=== PATIENT | male | born 1965 | race Caucasian/White ===

== ENCOUNTER 2016-12-24 09:35 | Emergency (ER) | payer MEDICARE ==
[2016-12-24] MEDS ORDERED: Sodium Chloride 0.9% 1000 ML 1,000 ML IV STA (09:55)
[2016-12-24] MEDS ORDERED: THIAMINE 200 MG/2 ML IV ONE (09:55)
[2016-12-24] MEDS ORDERED: Zofran 4 MG/2 ML VIAL IV ONE (09:55)
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
[2016-12-24] MEDS ORDERED: Sodium Chloride 0.9% 1000 ML 1,000 ML ONE (10:04)
[2016-12-24] MEDS ORDERED: THIAMINE 200 MG/2 ML ONE (10:04)
[2016-12-24] MEDS ORDERED: Zofran 4 MG/2 ML VIAL ONE (10:04)
--- NOTE | 2016-12-24 10:25 | XRAY ---
Indication: Fever, chills, and diarrhea. Comparison: July 06, 2014. Portable chest again demonstrates normal heart and lungs with left base calcified granuloma. Bony thorax intact again with old right seventh rib fracture. New spinal stimulator leads terminate mid thoracic level. Impression: Nonacute chest.
[2016-12-24 10:31] VITALS: O2SAT 99
[2016-12-24 10:39] LABS: BASOPHIL % 0.2 % (0.0-0.4); Eosinophil % 0.9 % (0.00-5.0); Granulocytes % 73.9 % (36.0-66.0); Lymphocytes % 19.4 % (24.0-44.0); Mean Cell Volume 91.9 fl (78-100); Mean Corpuscular Hemoglobin 30.6 pg (26-32); Mean Platelet Volume 10.9 fl (6-9.5); Monocytes % 5.6 % (0.0-12.0); Platelet Count 193 K/mm3 (150-450); Red Blood Count 3.46 M/mm3 (4.1-5.6); Red Cell Distribution Width 13.5 % (11.5-14.0); White Blood Count 4.6 K/mm3 (4.0-10.5)
[2016-12-24 11:04] LABS: ALBUMIN 3.9 g/dL (3.4-5.0); ALKALINE PHOSPHATASE 80 U/L (46-116); ANION GAP 15.4 MEQ/L (5-15); BILIRUBIN,TOTAL 0.3 mg/dL (0.2-1.0); BLOOD UREA NITROGEN 11 mg/dL (9-20); CHLORIDE 96 mEq/L (98-107); Carbon Dioxide 24.6 mEq/L (21-32); Glucose 106 MG/DL (70-110); LIPASE 225 U/L (73-393); Potassium 4.1 mEq/L (3.5-5.1); SGOT/AST 75 U/L (15-37); SGPT/ALT 54 U/L (12-78); SODIUM 132 mEq/L (136-145); Total Protein 7.8 gm/dL (6.4-8.2)
[2016-12-24 11:06] LABS: ACETAMINOPHEN 6.4 ug/ml (10-30); TROPONIN < 0.017 ng/ml (0.000-0.056)
[2016-12-24] MEDS ORDERED: NORCO 5/325 MG PO ONE (11:32)
[2016-12-24] MEDS ORDERED: NORCO 5/325 MG ONE (11:35)
[2016-12-24 11:39] VITALS: BP 176/96; PULSE 87
[2016-12-24 12:01] LABS: COMPLETE URINE MICROSCOPIC? NO; Collection Type VOID
== END 2016-12-24 12:17 | disposition home or self-care (01) ==
LOC: ED 09:35
DX: B34.9 Viral infection, unspecified (principal); R11.2 Nausea with vomiting, unspecified; R51 Headache; R50.9 Fever, unspecified; R19.7 Diarrhea, unspecified; R05 Cough
CPT/HCPCS: 96374; 99284; 36000; 96360; 96375; 82150; 81002; 36415; 83690; 80307; 80320; 83986; 85025; 80053; 84484; 71010; G0481; J2405; A9270-GY

== ENCOUNTER 2016-12-29 22:14 | Emergency (ER) | payer MEDICARE ==
[2016-12-29] MEDS ORDERED: Sodium Chloride 0.9% 1000 ML 1,000 ML IV STA (23:33)
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
[2016-12-29] MEDS ORDERED: Sodium Chloride 0.9% 1000 ML 1,000 ML ONE (23:48)
[2016-12-29 23:49] LABS: BASOPHIL % 0.3 % (0.0-0.4); Eosinophil % 1.4 % (0.00-5.0); Granulocytes % 56.6 % (36.0-66.0); Lymphocytes % 33.6 % (24.0-44.0); Mean Cell Volume 94.5 fl (78-100); Mean Corpuscular Hemoglobin 31.2 pg (26-32); Mean Platelet Volume 9.6 fl (6-9.5); Monocytes % 8.1 % (0.0-12.0); Platelet Count 220 K/mm3 (150-450); Red Cell Distribution Width 13.5 % (11.5-14.0); White Blood Count 6.9 K/mm3 (4.0-10.5)
[2016-12-30 00:10] LABS: ALBUMIN 3.3 g/dL (3.4-5.0); ALKALINE PHOSPHATASE 74 U/L (46-116); ANION GAP 13.4 MEQ/L (5-15); BILIRUBIN,TOTAL 0.1 mg/dL (0.2-1.0); BLOOD UREA NITROGEN 19 mg/dL (9-20); CHLORIDE 105 mEq/L (98-107); Glucose 98 MG/DL (70-110); Potassium 4.4 mEq/L (3.5-5.1); SGOT/AST 25 U/L (15-37); SGPT/ALT 24 U/L (12-78); SODIUM 140 mEq/L (136-145)
[2016-12-30] MEDS ORDERED: Vistaril 50 MG/ML IM ONE ×2 (00:49→01:02)
[2016-12-30 01:01] LABS: Bacteria RARE /HPF (NEGATIVE); COMPLETE URINE MICROSCOPIC? YES; Collection Type CLEAN CATCH
[2016-12-30 01:35] VITALS: BP 152/92; PULSE 68; O2SAT 100
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
== END 2016-12-30 01:39 | disposition home or self-care (01) ==
LOC: ED 22:14
DX: R11.0 Nausea (principal); M54.2 Cervicalgia; G89.29 Other chronic pain; R53.81 Other malaise; I10 Essential (primary) hypertension
CPT/HCPCS: 36415; 72040; 80053; 81000; 85025; 96360; 96361; 96372; 99284; 99285; J3410

== ENCOUNTER 2017-11-12 14:42 | Emergency (ER) | payer MEDICARE ==
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
[2017-11-12] MEDS ORDERED: Adacel Vial IM ONE ×2 (15:19→16:00)
[2017-11-12] MEDS ORDERED: TORAdol 30 mg Injection IV ONE (15:20)
[2017-11-12] MEDS ORDERED: MORPHINE SULFATE 10 MG/ML IV ONE (15:20)
[2017-11-12] MEDS ORDERED: Sodium Chloride 0.9% 1000 ML 1,000 ML IV STA (15:20)
[2017-11-12] MEDS ORDERED: Zofran 4 MG/2 ML VIAL IV ONE (15:20)
[2017-11-12] MEDS ORDERED: Zosyn 3.375GM/100 Ml D5W 3.375 GM/100 ML IVPB IV STA (15:21)
[2017-11-12 15:44] LABS: BASOPHIL % 0.2 % (0.0-0.4); Basophil (Absolute #) 0.01 (0-0.4); Eosinophil % 3.6 % (0.00-5.0); Eosinophil (Absolute #) 0.21 (0-0.5); Granulocyte Absolute (ANC) 3.82 (1.4-6.9); Granulocytes % 66.3 % (36.0-66.0); Hematocrit 32.8 % (42-50); Hemoglobin 10.4 gm/dl (12.5-18.0); Lymphocyte (Absolute #) 1.41 (1.0-4.6); Lymphocytes % 24.4 % (24.0-44.0); Mean Cell Volume 96.5 fl (78-100); Mean Corpuscular Hgb Concent. 31.7 g/dl (32-36); Monocyte (Absolute #) 0.32 (0.0-1.3); Monocytes % 5.5 % (0.0-12.0); Platelet Count 229 K/mm3 (150-450); Red Cell Distribution Width 14.1 % (11.5-14.0); White Blood Count 5.8 K/mm3 (4.0-10.5)
[2017-11-12 15:54] LABS: Mean Corpuscular Hemoglobin 30.5 pg (26-32)
[2017-11-12 15:55] LABS: Appearance CLEAR (CLEAR)
[2017-11-12 15:56] LABS: Bacteria FEW /HPF (NEGATIVE); Bilirubin NEGATIVE (NEGATIVE); Blood NEGATIVE Ery/ul (0-5); Epithelial Cells FEW /HPF (FEW); Glucose NEGATIVE (NEGATIVE); Ketones NEGATIVE (NEGATIVE); Leukocyte Esterase NEGATIVE (NEGATIVE); Nitrite NEGATIVE (NEGATIVE); Protein,Urine Dip TRACE (Negative); Urobilinogen NORMAL mg/dL (0-1)
[2017-11-12] MEDS ORDERED: TORAdol 30 mg Injection ONE (15:56)
[2017-11-12] MEDS ORDERED: Zofran 4 MG/2 ML VIAL ONE (15:56)
[2017-11-12] MEDS ORDERED: Zosyn 3.375GM/100 Ml D5W 3.375 GM/100 ML IVPB IV ONE (15:57)
[2017-11-12] MEDS ORDERED: Sodium Chloride 0.9% 1000 ML 1,000 ML ONE (15:57)
[2017-11-12] MEDS ORDERED: MORPHINE SULFATE 10 MG/ML ONE (15:57)
[2017-11-12 16:03] LABS: Amphetamine,Urine POS. (NEGATIVE); Barbiturate,Urine NEG. (NEGATIVE); Benzodiazepine,Urine NEG. (NEGATIVE); Cocaine,Urine NEG. (NEGATIVE); Methadone,Urine NEG. (NEGATIVE); Opiate,Urine NEG. (NEGATIVE); PCP,Urine NEG. (NEGATIVE); THC,Urine POS. (NEGATIVE)
[2017-11-12 16:04] LABS: ANION GAP 16.5 MEQ/L (5-15); BLOOD UREA NITROGEN 10 mg/dL (9-20); CHLORIDE 106 mEq/L (98-107); Calcium 9.2 mg/dL (8.5-10.1); Carbon Dioxide 24.9 mEq/L (21-32); Creatinine 1 1.03 mg/dl (0.55-1.30); Glucose 100 MG/DL (70-110); SODIUM 143 mEq/L (136-145)
[2017-11-12 16:34] VITALS: PULSE 80
[2017-11-12 17:03] VITALS: BP 199/122; O2SAT 98
== END 2017-11-12 17:43 | disposition short-term general hospital (02) ==
LOC: ED 14:42
DX: S51.811A Laceration without foreign body of right forearm, initial encounter (principal); W54.0XXA Bitten by dog, initial encounter
CPT/HCPCS: 36000; 36415; 80048; 80307; 81000; 85025; 90471; 90715; 96360; 96365; 96374; 96375; 99285; J1885; J2270; J2405; J2543

== ENCOUNTER 2017-11-14 04:18 | Emergency (ER) | payer MEDICARE ==
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
[2017-11-14 04:48] VITALS: PULSE 98
[2017-11-14] MEDS ORDERED: TORAdol 30 mg Injection IM ONE (04:52)
[2017-11-14] MEDS ORDERED: TORAdol 30 mg Injection ONE (04:56)
[2017-11-14 05:07] VITALS: BP 147/83; O2SAT 100
== END 2017-11-14 05:16 | disposition home or self-care (01) ==
LOC: ED 04:18
PROC: 2W3CX1Z Immobilization of Right Lower Arm using Splint (ICD-10-PCS; principal; 2017-11-14)
DX: W54.0XXS Bitten by dog, sequela (principal)
CPT/HCPCS: 29126; 96372; 99284; J1885

== ENCOUNTER 2018-05-12 12:59 | Emergency (ER) | payer OTHER, MEDICARE ==
[2018-05-12] MEDS ORDERED: Sodium Chloride 0.9% 1000 ML 1,000 ML IV STA ×2 (13:40→14:41)
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
[2018-05-12] MEDS ORDERED: Sodium Chloride 0.9% 1000 ML 1,000 ML ONE ×2 (13:49→14:29)
[2018-05-12 14:02] LABS: BASOPHIL % 0.2 % (0.0-0.4); Basophil (Absolute #) 0.02 (0-0.4); Eosinophil % 1.5 % (0.00-5.0); Eosinophil (Absolute #) 0.14 (0-0.5); Granulocyte Absolute (ANC) 7.03 (1.4-6.9); Granulocytes % 74.9 % (36.0-66.0); Hematocrit 39.4 % (42-50); Hemoglobin 13.5 gm/dl (12.5-18.0); Lymphocyte (Absolute #) 1.57 (1.0-4.6); Lymphocytes % 16.7 % (24.0-44.0); Mean Cell Volume 89.7 fl (78-100); Mean Corpuscular Hemoglobin 30.8 pg (26-32); Mean Corpuscular Hgb Concent. 34.3 g/dl (32-36); Monocyte (Absolute #) 0.63 (0.0-1.3); Monocytes % 6.7 % (0.0-12.0); Platelet Count 286 K/mm3 (150-450); Red Blood Count 4.39 M/mm3 (4.1-5.6); Red Cell Distribution Width 13.6 % (11.5-14.0); White Blood Count 9.4 K/mm3 (4.0-10.5)
[2018-05-12 14:12] LABS: Appearance CLEAR (CLEAR); Bacteria RARE /HPF (NEGATIVE); Bilirubin NEGATIVE (NEGATIVE); Blood NEGATIVE Ery/ul (0-5); Epithelial Cells RARE /HPF (FEW); Glucose NEGATIVE (NEGATIVE); Ketones NEGATIVE (NEGATIVE); Leukocyte Esterase NEGATIVE (NEGATIVE); Mucus SLIGHT /HPF (NEGATIVE); Nitrite NEGATIVE (NEGATIVE); Protein,Urine Dip 100 (Negative); Urobilinogen NORMAL mg/dL (0-1)
[2018-05-12 14:16] LABS: Amphetamine,Urine NEGATIVE (NEGATIVE); Barbiturate,Urine NEGATIVE (NEGATIVE); Benzodiazepine,Urine NEGATIVE (NEGATIVE); Cocaine,Urine NEGATIVE (NEGATIVE); Methadone,Urine NEGATIVE (NEGATIVE); Opiate,Urine NEGATIVE (NEGATIVE); PCP,Urine NEGATIVE (NEGATIVE); THC,Urine NEGATIVE (NEGATIVE)
[2018-05-12 14:21] LABS: ALBUMIN 4.9 g/dL (3.5-5.0); ALKALINE PHOSPHATASE 122 U/L (38-126); ANION GAP 25.7 MEQ/L (5-15); BLOOD UREA NITROGEN 11 mg/dL (9-20); CHLORIDE 106 mmol/L (98-107); Calcium 9.9 mg/dL (8.4-10.2); Carbon Dioxide 17 mmol/L (22-30); Creatinine 1 1.02 mg/dL (0.66-1.25); Glucose 125 mg/dL (74-106); Potassium 3.4 mmol/L (3.5-5.1); SGOT/AST 75 U/L (17-59); SODIUM 145 mmol/L (137-145); Total Protein 8.6 g/dL (6.3-8.2)
[2018-05-12 14:26] LABS: Lactic Acid 7.1 (0.4-2.0)
[2018-05-12 14:27] LABS: SGPT/ALT 39 U/L (0-50)
[2018-05-12] MEDS ORDERED: Merrem 1 GM 1 G in Sodium Chloride 100ML MINI-BAG PLUS 100 ML IV STA (14:34)
[2018-05-12] MEDS ORDERED: TYLENOL 325 MG PO STA (14:35)
[2018-05-12] MEDS ORDERED: Merrem 1 GM IV ONE (14:46)
[2018-05-12] MEDS ORDERED: TYLENOL 325 MG ONE (14:46)
[2018-05-12] MEDS ORDERED: Sodium Chloride 0.9% 100 ML IVPB 100 ML IV ONE (14:47)
--- NOTE | 2018-05-12 15:36 | XRAY ---
Indication: Short of breath one month. Comparison: December 24, 2016. Portable chest again demonstrates normal heart and lungs with left base calcified granuloma and spinal stimulator leads. Bony thorax intact again with old right 7 rib fracture. No new/acute findings. Impression: Stable nonacute chest.
--- NOTE | 2018-05-12 15:38 | XRAY ---
Indication: Confusion. Multiple contiguous axial images obtained through the head without contrast. Comparison: February 26, 2016. Again normal appearing brain parenchyma, ventricles, and bony calvarium. Mild mucosal thickening of both ethmoid sinuses. Remaining visualized paranasal sinuses and mastoid air cells are clear. Impression: Minimal paranasal sinus disease. Remaining CT head without contrast exam is normal. CTDI 67.60
--- NOTE | 2018-05-12 15:50 | XRAY ---
Indication: Nausea. Sepsis. Elevated lactic acid levels. Multiple contiguous axial images obtained through the abdomen and pelvis using 80 cc Isovue 370 contrast only. Comparison: None Lung bases demonstrates mild bibasilar dependent atelectasis and lingular fibrosis/scarring. No infiltrate or effusion. Heart is not enlarged. Tiny left infrahilar and distal periaortic calcified nodes. There is been L3-L5 fusion surgery with intervertebral bone graft and bilateral pedicle screws/spinal hardware producing extreme artifact limiting these levels. Also proximal left femur fixation hardware and left gluteal spinal stimulator device produces beam artifact. Epidural spinal stimulator leads courses superiorly with tips not included in the [id number]. Noncontrasted stomach and bowel loops appear nonobstructed. Normal appendix. No free fluid/air. Tiny 3 mm right lobe hepatic cyst near the dome of the diaphragm. Several bilateral renal cysts, largest right upper pole measuring 3.6 cm. Scattered calcified splenic granulomas. Remaining liver, gallbladder, pancreas, spleen, adrenal glands, kidneys, ureters, and bladder appear unremarkable. Mild aortoiliac calcifications. No AAA or pathologic retroperitoneal lymphadenopathy. Remaining osseous structures intact with mild degenerative changes throughout the thoracolumbar spine. No ventral or inguinal hernias. Impression: 1. Beam artifact from spinal and left proximal femur hardware limits exam. 2. Hepatic/bilateral renal cysts and evidence for old granulomatous disease. 3. Remaining CT abdomen/pelvis with contrast exam is negative. CTDI 14.96
[2018-05-12 17:26] VITALS: BP 157/95; PULSE 85; O2SAT 97
[2018-05-14 13:45] LABS: HEPATITIS B VIRUS CORE TOT AB Non Reactive (Non Reactive); HEPATITIS C VIRUS ANTIBODY Non Reactive (Non Reactive); Hepatitis B Surface Antigen Non Reactive (Non Reactive)
== END 2018-05-12 17:34 | disposition home or self-care (01) ==
LOC: ED 12:59
DX: R51 Headache (principal); R61 Generalized hyperhidrosis; R53.1 Weakness; Z79.899 Other long term (current) drug therapy
CPT/HCPCS: 36000; 36415; 70450; 71045; 74177; 80053; 80074; 80307; 81000; 83605; 84484; 85025; 87040; 93005; 96360; 96365; 99285; A9270-GY

== ENCOUNTER 2025-01-10 13:27 | Emergency (ER) | payer MEDICARE, OTHER ==
[2025-01-10 13:36] VITALS: TEMP 97.2
[2025-01-10 13:48] LABS: BASOPHIL % 0.4 % (0.2-1.2); Basophil (Absolute #) 0.04 x10^3/uL (0.01-0.08); Eosinophil % 1.5 % (0.8-7.0); Eosinophil (Absolute #) 0.15 x10^3/uL (0.04-0.54); Hematocrit 35.9 % (40.1-51.0); IMMATURE GRAN # 0.03 x10^3u/L (0.001-0.031); IMMATURE GRAN % 0.3 % (0.001-0.429); Lymphocyte (Absolute #) 1.36 x10^3/uL (1.32-3.57); Lymphocytes % 13.9 % (21.8-53.1); Mean Cell Volume 90.2 fL (79.0-92.2); Mean Corpuscular Hemoglobin 27.6 pg (25.7-32.2); Mean Corpuscular Hgb Concent. 30.6 g/dL (32.3-36.5); Mean Platelet Volume 11.1 fL (9.4-12.4); Monocyte (Absolute #) 0.33 x10^3/uL (0.30-0.82); Monocytes % 3.4 % (5.3-12.2); Neutrophil % 80.5 % (34.0-67.9); Platelet Count 278 x10^3/uL (163-337); Red Blood Count 3.98 x10^6/uL (4.63-6.08); Red Cell Distribution Width 15.5 % (11.6-14.4); White Blood Count 9.8 x10^3/uL (4.23-9.07)
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
--- NOTE | 2025-01-10 14:03 | XRAY ---
Indication: Chest pain. Comparison: May 12, 2018 Portable chest demonstrate new cardiomegaly, central vascular congestion, and moderate right/mild left pleural effusions with atelectasis favoring cardiac decompensation/CHF. Superimposed pneumonia not completely excluded. Bony thorax intact with old right 7/left 8 rib fractures and epidural leads.
[2025-01-10] MEDS: Toprol-Xl 25MG Tablets PO ONE (14:04)
[2025-01-10] MEDS ORDERED: Toprol-Xl 25MG Tablets ONE (14:04)
[2025-01-10 14:11] LABS: ALBUMIN 4.4 g/dL (3.5-5.0); ANION GAP 21.3 MEQ/L (5-15); BILIRUBIN,TOTAL 1.1 mg/dL (0.2-1.3); Calcium 9.6 mg/dL (8.4-10.2); Creatinine 1 1.56 mg/dL (0.66-1.25); EST GLOMERULAR FILTRATION RATE 50.5 ML/MIN; Potassium 4.9 mmol/L (3.5-5.1); Total Protein 8.1 g/dL (6.3-8.2)
[2025-01-10 14:20] LABS: VBG BASE EXCESS -0.7 (-2.0-2.0); VBG CARBOXYHEMOGLOBIN 4.8 % T HGB (0.0-6.9); VBG HCO3- 26.2 meq/L (22-28); VBG HEMOGLOBIN 11.6; VBG O2 SATURATION 42.1 (95-100); VBG POTASSIUM 5.3 (3.5-5.1); VBG pH 7.31 (7.32-7.42)
[2025-01-10 15:24] LABS: INFLUENZA A NEGATIVE (NEGATIVE); INFLUENZA B NEGATIVE (NEGATIVE); RESPIRATORY SYNCTIAL VIRUS NEGATIVE (NEGATIVE); SARS-CoV-2 Xpert Express NEGATIVE (NEGATIVE)
--- NOTE | 2025-01-10 15:32 | XRAY ---
Indication: Short of breath. Elevated d-dimer. Multiple contiguous axial images obtained through the chest using 80 cc Isovue 370 contrast and PE protocol. Comparison: None Good opacification pulmonary arteries. However respiration artifact limits evaluation of the more distal lobar and segmental branches. No obvious central pulmonary embolus. Heart is enlarged. Aorta is minimally atherosclerotic without aneurysm/dissection. Tiny mediastinal and bilateral hilar calcified nodes. No pathologic mediastinal/hilar lymphadenopathy. Lungs demonstrates moderate right and mild left pleural effusions with compressive atelectasis. Bony thorax intact with osteopenia and mild degenerative changes throughout spine and old bilateral rib fractures. Incidental epidural leads terminating T6/T7 level. Limited upper abdomen demonstrates 2.2 cm left mid renal cyst. Left upper kidney demonstrates 2 rounded dense lesions largest measuring 3.8 cm, not simple cysts. Impression: 1. Respiration artifact limits pulmonary embolus evaluation. No obvious pulmonary embolus. 2. Cardiomegaly with bilateral effusions favoring cardiac decompensation/CHF. This was reported on same-day chest radiograph. 3. Left upper renal indeterminant exophytic dense lesions. Largest measures 3.8 cm, previously 3.[address] abdomen/pelvis May 12, 2018 exam. 4. Osteopenia, degenerative spondylosis, old bilateral fractures, arteriosclerotic disease, and old granulomatous disease.
[2025-01-10] MEDS ORDERED: Lasix 20 MG/2 ML ONE (15:35)
[2025-01-10] MEDS: Lasix 20 MG/2 ML IV STA (15:38)
[2025-01-10] MEDS ORDERED: NITRO-BID 2% UD PACKETS ONE (15:43)
[2025-01-10] MEDS ORDERED: BABY ASPIRIN 81 MG CHEW ONE (15:43)
[2025-01-10] MEDS: BABY ASPIRIN 81 MG CHEW PO ONE (15:45)
[2025-01-10] MEDS: NITRO-BID 2% UD PACKETS TOP ONE (15:45)
[2025-01-10] MEDS ORDERED: Zofran 4 MG/2 ML VIAL ONE (16:48)
[2025-01-10] MEDS: Zofran 4 MG/2 ML VIAL IV ONE (16:49)
[2025-01-10] MEDS: CARDENE*** 25 MG in Sodium Chloride 0.9% 250 ML 240 ML IV PRN (16:57)
[2025-01-10 17:14] VITALS: BP 199/118; PULSE 81; RESP 30
[2025-01-10 17:39] VITALS: O2SAT 94
== END 2025-01-10 17:54 | disposition short-term general hospital (02) ==
LOC: ED 13:27
DX: I11.0 Hypertensive heart disease with heart failure (principal); I50.9 Heart failure, unspecified; I16.0 Hypertensive urgency; N17.9 Acute kidney failure, unspecified; R77.8 Other specified abnormalities of plasma proteins; R79.89 Other specified abnormal findings of blood chemistry; R60.0 Localized edema; R09.89 Other specified symptoms and signs involving the circulatory and respiratory systems; N28.1 Cyst of kidney, acquired; R06.02 Shortness of breath; R07.9 Chest pain, unspecified; I24.9 Acute ischemic heart disease, unspecified; R00.0 Tachycardia, unspecified; N28.89 Other specified disorders of kidney and ureter; Z72.0 Tobacco use; Z59.82 Transportation insecurity
CPT/HCPCS: 0241U; 36415; 71045; 71260; 80053; 82805; 83880; 84484; 85025; 85379; 93005; 93041; 94760; 96374; 96375; 99291; 99292; 99285; J1938; J2405; A9270-GY